=== PATIENT | male | born 2000 | race Caucasian/White ===

== ENCOUNTER 2024-01-29 10:12 | Emergency (ER) | payer OTHER ==
[~2024-01-29] VITALS: Ht 167.6 cm; Wt 74.8 kg
[2024-01-29 10:16] VITALS: BP 118/80; PULSE 64; RESP 14; TEMP 97.9; O2SAT 98
[2024-01-29] MEDS ORDERED: ACET-8905 PO (12:05)
== END 2024-01-29 12:47 | disposition home or self-care (01) ==
LOC: MED 10:12
DX: S90.31XA Contusion of right foot, initial encounter (principal); F17.200 Nicotine dependence, unspecified, uncomplicated; X58.XXXA Exposure to other specified factors, initial encounter; Y93.89 Activity, other specified; Y92.89 Other specified places as the place of occurrence of the external cause; Y99.8 Other external cause status
CPT/HCPCS: 73630; 99283; Q0092